=== PATIENT | male | born 1995 | race Caucasian/White ===

== ENCOUNTER 2021-07-19 07:16 | Emergency (ER) | payer OTHER ==
[~2021-07-19] VITALS: Ht 180.3 cm; Wt 84.5 kg
[2021-07-19 07:16] VITALS: BP 135/71
[2021-07-19] MEDS ORDERED: IBUPROFEN 800 MG TAB PO ONE (11:25)
== END 2021-07-19 12:21 | disposition home or self-care (01) ==
LOC: M ED 07:16
DX: M50.221 Other cervical disc displacement at C4-C5 level (principal); M50.222 Other cervical disc displacement at C5-C6 level; M25.78 Osteophyte, vertebrae; F17.200 Nicotine dependence, unspecified, uncomplicated; Y92.9 Unspecified place or not applicable; Y93.9 Activity, unspecified; Y99.1 Military activity

== ENCOUNTER 2021-10-04 07:25 | Observation (INO) | payer OTHER ==
[~2021-10-04] VITALS: Ht 180.3 cm; Wt 91.9 kg
[2021-10-04] MEDS ORDERED: NS 1,000 ML IV ONE (09:25)
[2021-10-04] MEDS ORDERED: fentaNYL 100 MCG/2 ML INJECTION IV ONE (09:25)
[2021-10-04] MEDS ORDERED: HOME MED LIST COMPLETE! XX SCH (09:45)
[2021-10-04 10:04] LABS: BASO % 0.3 % (0.0-1.0); EOS % 0.4 % (0.0-3.0); HEMOGLOBIN 15.1 g/dl (13.5-17.5); LYMPH # 1.3 10^3/uL (1.5-5.0); LYMPH % 12.9 % (24.0-44.0); MEAN CORPUSCULAR HGB CONC 33.6 g/dl (32.0-36.5); MEAN CORPUSCULAR VOLUME 92.4 fl (80.0-96.0); MONO # 0.6 10^3/uL (0.0-0.8); MONO % 5.4 % (2.0-8.0); NEUTROPHILS # 8.2 10^3/uL (1.5-8.5); NEUTROPHILS % 80.7 % (36.0-66.0); PLATELET COUNT, AUTOMATED 179 10^3/uL (150-450); RED BLOOD COUNT 4.87 10^6/uL (4.30-6.10); WHITE BLOOD COUNT 10.1 10^3/uL (4.0-10.0)
[2021-10-04 10:15] LABS: INR 0.97; PROTHROMBIN TIME 13.3 SECONDS (12.7-14.5)
[2021-10-04 10:16] LABS: PARTIAL THROMBOPLASTIN TIME 26.1 SECONDS (25.9-37.0)
[2021-10-04 10:29] LABS: BLOOD UREA NITROGEN 11 MG/DL (7-18); CARBON DIOXIDE LEVEL 27 MEQ/L (21-32); CHLORIDE LEVEL 108 MEQ/L (98-107); CREATININE FOR GFR 1.08 MG/DL (0.70-1.30); GLOMERULAR FILTRATION RATE > 60.0 (>60); GLUCOSE, FASTING 97 MG/DL (70-100); POTASSIUM SERUM 3.7 MEQ/L (3.5-5.1); SODIUM LEVEL 142 MEQ/L (136-145)
[2021-10-04 10:36] LABS: RSV AMPLIFICATION NEGATIVE (NEGATIVE)
[2021-10-04] MEDS ORDERED: MORPHINE 2 MG/ML 1ML VIAL IV ONE (14:55)
[2021-10-04] MEDS ORDERED: ONDANSETRON 4MG 2ML VIAL IV ONE (14:55)
[2021-10-04] MEDS ORDERED: PERCOCET 5MG/325MG TAB PO PRN (16:55)
[2021-10-04 17:00] VITALS: BP 137/54
[2021-10-04] MEDS: PERCOCET 5MG/325MG TAB PO PRN ×2 (17:26→21:29)
[2021-10-04 20:15] VITALS: BP 124/70
[2021-10-05] MEDS: PERCOCET 5MG/325MG TAB PO PRN ×3 (04:11→14:08)
[2021-10-05 06:11] VITALS: BP 134/71
[2021-10-05] MEDS ORDERED: ASPI81CH33 PO (13:40)
[2021-10-05 14:23] VITALS: BP 127/69
[2021-10-05] MEDS ORDERED: PERC5TAB12 PO (14:48)
[2021-10-09] MEDS ORDERED: IBUP200C27 PO (10:22)
== END 2021-10-05 15:20 | disposition home or self-care (01) ==
LOC: M ED 07:25 → M ED INP 14:19 → ENRESERV 15:41 → M MS5PR 17:00
PROVIDERS: ADMIT Internal Medicine; ATTEND Internal Medicine
DX: S82.852A Displaced trimalleolar fracture of left lower leg, initial encounter for closed fracture (principal); W09.8XXA Fall on or from other playground equipment, initial encounter; Y92.84 Military training ground as the place of occurrence of the external cause; Y93.A5 Activity, obstacle course; Y99.1 Military activity; F17.290 Nicotine dependence, other tobacco product, uncomplicated
CPT/HCPCS: 73590; 73610; 73630; 73700; 80048; 85025; 85610; 85730; 87631; 96374; 96375; 97116; 97161; 99284; J2270; J2405; J3010

== ENCOUNTER 2021-10-10 10:08 | Day surgery (SDC) | payer OTHER ==
[~2021-10-10] VITALS: Ht 180.3 cm; Wt 91.4 kg
[~2021-10-10 10:08] MED LIST: ASPI81CH33 PO; BUPIVACAINE/EPIN 0.5% 30 ML VIAL XX ONE; IBUP200C27 PO; PERC5TAB12 PO; ceFAZolin SOD 2 GM in IV 1 EA IV ONE
[2021-10-10] MEDS ORDERED: LR 1,000 ML IV SCH ×3 (10:35→20:00)
[2021-10-10] MEDS ORDERED: MIDAZOLAM INJ 2MG/2ML VIAL (J2250 PER 1MG) As Ordered ONE (11:02)
[2021-10-10] MEDS ORDERED: ONDA4TAB6 PO (11:13)
[2021-10-10] MEDS ORDERED: EPINEPHrine INJ 1 MG/ML 1ML AMP PN ONE (11:20)
[2021-10-10] MEDS ORDERED: MIDAZOLAM INJ 2MG/2ML VIAL (J2250 PER 1MG) IV PRN (11:20)
[2021-10-10] MEDS ORDERED: fentaNYL 100 MCG/2 ML INJECTION IV PRN ×2 (11:20→19:05)
[2021-10-10] MEDS ORDERED: dexameTHASONE 10MG/1ML VIAL PRES.FREE (J1100 PER 1MG) PN ONE (11:20)
[2021-10-10] MEDS ORDERED: ROPIvacaine 0.5% 30ML INJECTION (J2795 PER 1MG) PN ONE (11:20)
[2021-10-10] MEDS ORDERED: TRANEXAMIC ACID 100 MG/ML 10ML VIAL As Ordered ONE ×2 (13:40→13:41)
[2021-10-10] MEDS ORDERED: VANCOMYCIN 1000MG/20ML VIAL As Ordered ONE (13:41)
[2021-10-10] MEDS ORDERED: dexameTHASONE 4 MG/ML 1ML VIAL (J1100 PER 1MG) As Ordered ONE (14:08)
[2021-10-10] MEDS ORDERED: propofoL 200 MG/20 ML VIAL As Ordered ONE (14:08)
[2021-10-10] MEDS ORDERED: LIDOCAINE 2% 100MG/5ML SDV (FOR ANES.) As Ordered ONE (14:09)
[2021-10-10] MEDS ORDERED: ACETAMINOPHEN 1000MG 100ML IV BTL (OFIRMEV) (J0131 PER 10MG) As Ordered ONE (14:10)
[2021-10-10] MEDS ORDERED: SUGAMMADEX SODIUM 500 MG/5 ML VIAL (BRIDION) As Ordered ONE (14:17)
[2021-10-10] MEDS ORDERED: ROCURONIUM BROMIDE 50 MG/5 ML VIAL As Ordered ONE ×4 (14:17→18:09)
[2021-10-10] MEDS ORDERED: ONDANSETRON 4MG 2ML VIAL As Ordered ONE (14:19)
[2021-10-10] MEDS ORDERED: fentaNYL 250 MCG/5 ML INJECTION As Ordered ONE (16:05)
[2021-10-10] MEDS ORDERED: BUPIVACAINE LIPOSOME/PF 1.3% 20ML VIAL (13.3MG/ML)(EXPAREL) As Ordered ONE (18:20)
[2021-10-10] MEDS ORDERED: BUPIVACAINE HCL 0.25% 10ML VIAL As Ordered ONE (18:20)
[2021-10-10] MEDS ORDERED: ONDANSETRON 4MG 2ML VIAL IV PRN (19:05)
[2021-10-10] MEDS ORDERED: oxyCODONE 5MG TAB PO PRN (19:05)
[2021-10-10 20:05] VITALS: BP 140/69
== END 2021-10-10 20:37 | disposition home or self-care (01) ==
LOC: M SDC 10:08
PROVIDERS: ATTEND Orthopaedic Surgery
DX: S82.852A Displaced trimalleolar fracture of left lower leg, initial encounter for closed fracture (principal); W17.89XA Other fall from one level to another, initial encounter; Y93.A5 Activity, obstacle course; Y92.138 Other place on military base as the place of occurrence of the external cause; F17.290 Nicotine dependence, other tobacco product, uncomplicated; K21.9 Gastro-esophageal reflux disease without esophagitis; Y99.1 Military activity
CPT/HCPCS: 27823; 64445; 76000; C1713; C9290; J0131; J0690; J1100; J2250; J2405; J3010; J3370

== ENCOUNTER → 2022-05-17 | Outpatient (CLI) | payer OTHER ==
[~2022-05-17] MED LIST changes: -BUPIVACAINE/EPIN 0.5% 30 ML VIAL XX ONE; +ONDA4TAB6 PO; -ceFAZolin SOD 2 GM in IV 1 EA IV ONE
== END ==
LOC: M PLARAD 12:52
PROVIDERS: ATTEND Physical Medicine & Rehabilitation
DX: M47.892 Other spondylosis, cervical region (principal); M54.6 Pain in thoracic spine; M50.322 Other cervical disc degeneration at C5-C6 level; M50.323 Other cervical disc degeneration at C6-C7 level; M48.02 Spinal stenosis, cervical region

== ENCOUNTER 2023-12-31 20:50 | Emergency (ER) | payer OTHER ==
[~2023-12-31] VITALS: Ht 180.3 cm; Wt 89.1 kg
[~2023-12-31 20:50] MED LIST changes: +ONDA-282 PO; -ONDA4TAB6 PO
[2023-12-31 20:58] VITALS: TEMP 98.8
[2023-12-31 21:16] LABS: BASO # 0.1 10^3/uL (0.0-0.2); BASO % 0.6 % (0.0-1.0); EOS # 0.3 10^3/uL (0.0-0.5); EOS % 2.5 % (0.0-3.0); HEMATOCRIT 42.8 % (42.0-52.0); HEMOGLOBIN 15.3 g/dl (13.5-17.5); LYMPH # 4.1 10^3/uL (1.5-5.0); LYMPH % 37.9 % (24.0-44.0); MEAN CORPUSCULAR HEMOGLOBIN 31.9 pg (27.0-33.0); MEAN CORPUSCULAR HGB CONC 35.7 g/dl (32.0-36.5); MEAN CORPUSCULAR VOLUME 89.2 fl (80.0-96.0); MONO # 0.7 10^3/uL (0.0-0.8); MONO % 6.8 % (2.0-8.0); NEUTROPHILS # 5.7 10^3/uL (1.5-8.5); NEUTROPHILS % 51.9 % (36.0-66.0); PLATELET COUNT, AUTOMATED 225 10^3/uL (150-450); WHITE BLOOD COUNT 10.9 10^3/uL (4.0-10.0)
[2023-12-31] MEDS: NS 1,000 ML IV ONE ×2 (21:17→22:51)
[2023-12-31 21:41] LABS: THYROID STIMULATING HORMONE 8.271 uIU/ML (0.55-4.78)
[2023-12-31] MEDS: METOPROLOL TART 25 MG TABLET PO ONE (21:44)
[2023-12-31] MEDS: METOPROLOL 5 MG/5 ML VIAL IV PRN (21:44)
[2023-12-31 21:46] LABS: ALBUMIN 4.2 G/DL (3.2-5.2); ALKALINE PHOSPHATASE 59 U/L (46-116); ALT/SGPT 31 U/L (7.0-40); AST/SGOT 51 U/L (<34); BILIRUBIN,DIRECT < 0.1 MG/DL (<0.4); BILIRUBIN,TOTAL 0.4 MG/DL (0.3-1.2); BLOOD UREA NITROGEN 18 MG/DL (9-23); CALCIUM LEVEL 9.8 MG/DL (8.5-10.1); CARBON DIOXIDE LEVEL 20 MMOL/L (20-31); CHLORIDE LEVEL 109 MMOL/L (98-107); CK-MB VALUE MASS < 1.0 NG/ML (<3.6); CPK CREATINE PHOSPHOKINASE 162 U/L (46-171); CREATININE FOR GFR 0.95 MG/DL (0.70-1.30); FREE T4 1.32 NG/DL (0.89-1.76); GLOMERULAR FILTRATION RATE > 60.0 (>60); GLUCOSE, FASTING 118 MG/DL (60-100); LIPASE 51 U/L (12-53); MB/CK RELATIVE INDEX 0.61 (< OR =4); POTASSIUM SERUM 5.1 MMOL/L (3.5-5.1); SODIUM LEVEL 137 MMOL/L (136-145); TOTAL PROTEIN 7.6 G/DL (5.7-8.2)
[2023-12-31 22:05] VITALS: BP 121/79
[2023-12-31 22:23] LABS: ETHYL ALCOHOL (ETHANOL) 0.007 % (0.000-0.010); MAGNESIUM LEVEL 1.9 MG/DL (1.8-2.4)
[2023-12-31 22:51] LABS: CK-MB VALUE MASS < 1.0 NG/ML (<3.6)
[2023-12-31 22:55] LABS: CPK CREATINE PHOSPHOKINASE 101 U/L (46-171); MB/CK RELATIVE INDEX 0.99 (< OR =4)
[2023-12-31] MEDS ORDERED: AMIODARONE 150MG/3ML VIAL IVP STA (23:42)
[2023-12-31] MEDS ORDERED: AMIODARONE HCL 150 MG/100 ML PREMIXED BAG (NEXTERONE) As Ordered ONE (23:59)
[2024-01-01] MEDS: AMIODARONE HCL 150 MG in IV 1 EA IV STA (00:22)
[2024-01-01] MEDS: AMIODARONE HCL 150 MG in IV 1 EA IV ONE (01:41)
[2024-01-01] MEDS ORDERED: HOME MED LIST COMPLETE! XX SCH (02:25)
[2024-01-01 03:41] VITALS: O2SAT 100
[2024-01-01 04:00] VITALS: BP 109/57; O2SAT 96
[2024-01-01] MEDS ORDERED: PACE200T PO (04:03)
[2024-01-01] MEDS ORDERED: ASPI-1 PO (04:03)
[2024-01-01] MEDS ORDERED: METO25TA4 PO (04:03)
== END 2024-01-01 04:25 | disposition home or self-care (01) ==
LOC: M ED 20:50 → EDUNIT# 20:50 → EDBD 20:50 → M ED 01-01 04:25
DX: I48.91 Unspecified atrial fibrillation (principal); F10.10 Alcohol abuse, uncomplicated; Z79.82 Long term (current) use of aspirin; Z79.899 Other long term (current) drug therapy
CPT/HCPCS: 71045; 80048; 80076; 82077; 82550; 82553; 83690; 83735; 83880; 84439; 84443; 84484; 85025; 93005; 93041; 94760; 96361; 96374; 96375; 96376; 99285; J0283

== ENCOUNTER 2024-06-10 10:29 | Emergency (ER) | payer OTHER ==
[~2024-06-10] VITALS: Ht 180.3 cm; Wt 97.9 kg
[~2024-06-10 10:29] MED LIST changes: -EEG XX; -ELIQ5TAB; -HOLTER MONITOR XX; -MECL-209 PO
[2024-06-10] MEDS ORDERED: ELIQ5TAB (10:43)
[2024-06-10 11:22] LABS: BASO # 0.1 10^3/uL (0.0-0.2); BASO % 0.7 % (0.0-1.0); EOS # 0.1 10^3/uL (0.0-0.5); HEMATOCRIT 46.7 % (42.0-52.0); HEMOGLOBIN 16.1 g/dl (13.5-17.5); LYMPH # 1.7 10^3/uL (1.5-5.0); MEAN CORPUSCULAR HEMOGLOBIN 32.3 pg (27.0-33.0); MEAN CORPUSCULAR HGB CONC 34.5 g/dl (32.0-36.5); MEAN CORPUSCULAR VOLUME 93.6 fl (80.0-96.0); MONO # 0.5 10^3/uL (0.0-0.8); MONO % 7.3 % (2.0-8.0); NEUTROPHILS # 4.8 10^3/uL (1.5-8.5); NEUTROPHILS % 66.6 % (36.0-66.0); PLATELET COUNT, AUTOMATED 197 10^3/uL (150-450); RED BLOOD COUNT 4.99 10^6/uL (4.30-6.10); WHITE BLOOD COUNT 7.2 10^3/uL (4.0-10.0)
[2024-06-10 11:48] LABS: LIPASE 38 U/L (12-53)
[2024-06-10 11:49] LABS: CK-MB VALUE MASS < 1.0 NG/ML (<3.6)
[2024-06-10 11:53] LABS: CPK CREATINE PHOSPHOKINASE 112 U/L (46-171); MB/CK RELATIVE INDEX 0.89 (< OR =4)
[2024-06-10 12:06] LABS: ALBUMIN 4.4 G/DL (3.2-5.2); ALKALINE PHOSPHATASE 54 U/L (40-129); ALT/SGPT 26 U/L (7.0-40); AST/SGOT 22 U/L (<34); BILIRUBIN,DIRECT 0.1 MG/DL (<0.4); BILIRUBIN,TOTAL 0.6 MG/DL (0.3-1.2); BLOOD UREA NITROGEN 13 MG/DL (9-23); CALCIUM LEVEL 9.7 MG/DL (8.5-10.1); CARBON DIOXIDE LEVEL 29 MMOL/L (20-31); CHLORIDE LEVEL 107 MMOL/L (98-107); CREATININE FOR GFR 1.02 MG/DL (0.70-1.30); GLOMERULAR FILTRATION RATE > 60.0 (>60); GLUCOSE, FASTING 80 MG/DL (60-100); POTASSIUM SERUM 4.6 MMOL/L (3.5-5.1); SODIUM LEVEL 142 MMOL/L (136-145); TOTAL PROTEIN 7.7 G/DL (5.7-8.2)
[2024-06-10] MEDS ORDERED: EEG XX (16:15)
[2024-06-10] MEDS ORDERED: HOLTER MONITOR XX (16:21)
[2024-06-10] MEDS ORDERED: MECL-209 PO (16:22)
[2024-06-10 16:39] VITALS: BP 142/78; TEMP 98.2; O2SAT 99
== END 2024-06-10 16:55 | disposition home or self-care (01) ==
LOC: M ED 10:29
DX: R42 Dizziness and giddiness (principal); R00.2 Palpitations; I45.81 Long QT syndrome; F17.200 Nicotine dependence, unspecified, uncomplicated; Z86.79 Personal history of other diseases of the circulatory system; Z79.01 Long term (current) use of anticoagulants; Z79.899 Other long term (current) drug therapy

== ENCOUNTER → 2024-06-10 | Outpatient (CLI) | payer OTHER ==
[~2024-06-10] MED LIST changes: +ASPI-1 PO; +EEG XX; +ELIQ5TAB; +HOLTER MONITOR XX; +MECL-209 PO; +METO25TA4 PO; +PACE200T PO
== END ==
LOC: M EKG 17:22
PROVIDERS: ATTEND Emergency Medicine
DX: R00.2 Palpitations (principal); I49.8 Other specified cardiac arrhythmias